=== PATIENT | male | born 1960 | race Caucasian/White ===

== ENCOUNTER → 2022-02-07 | Outpatient (CLI) | payer BC ==
[~2022-02-07] MED LIST: IOPAMIDOL 370 MG/ML 100 ML INFUS..BTL INJ ONE
== END ==
LOC: DX 11:36
PROVIDERS: ATTEND Internal Medicine
DX: K63.1 Perforation of intestine (nontraumatic) (principal)
CPT/HCPCS: 47531; Q9967

== ENCOUNTER → 2024-06-17 | Outpatient (REF) | payer OTHER ==
[~2024-06-17] MED LIST changes: +ALBUTEROL2.5 MG/3 M; +AMOX TR-K CLV1 EAC2 PO; +ENOXAPARIN60 MG/0.6 SC; +IPRAT-ALBUT 0.5-3 ML; +OMEPRAZOLE40 MG PO; +SUCRALFATE1 GM PO; +TRELEGY ELLIPT1 EACH
[2024-06-17 10:39] LABS: CREATININE, SERUM 1.29 mg/dL (0.72-1.25)
== END ==
LOC: CT 09:44
PROVIDERS: ATTEND Internal Medicine Critical Care Medicine
DX: Z86.711 Personal history of pulmonary embolism (principal); F17.210 Nicotine dependence, cigarettes, uncomplicated
CPT/HCPCS: 36415; 71260; 82565; 84520; Q9967